=== PATIENT | male | born 1960 | race Caucasian/White ===

== ENCOUNTER → 2017-06-04 | Outpatient (CLI) | payer MEDICARE, OTHER | LOC: EDSEX 11:02 → RAD 11:02 | PROVIDERS: ATTEND Internal Medicine Cardiovascular Disease | DX: I63.9 Cerebral infarction, unspecified (principal); F43.10 Post-traumatic stress disorder, unspecified; Z72.0 Tobacco use | CPT/HCPCS: 93306 ==

== ENCOUNTER → 2017-06-10 | Outpatient (CLI) | payer MEDICARE, OTHER ==
[~2017-06-10] VITALS: Ht 182.9 cm; Wt 135.6 kg
[~2017-06-10] MED LIST: CATHETER FLUSH 10 ML SYR IV PRN; REGADENOSON 0.4 MG/5 ML SYR (LEXISCAN) IV ONE
--- NOTE | 2017-06-10 22:08 | STRESS TEST ---
DATE OF SERVICE: 06/10/2017 EXERCISE MYOVIEW STRESS TEST REPORT Baseline heart rate is 69, baseline blood pressure 190/110. Baseline EKG is sinus rhythm with no ischemic changes. SUMMARY: The patient was injected with 10.01 mCi of technetium-99 Myoview and the resting images were obtained. Then, the patient received 0.4 mg of Lexiscan followed by 29.2 mCi of technetium-99 Myoview. Throughout the test, there were no EKG changes. The resting and stress images were reviewed and compared in the short axis, horizontal long axis and vertical long axis views. Review of the images showed reversible ischemia involving the whole anterior wall, anterolateral wall and anterior septum. SSS is 11, SDS is 7, TID value 1.0. On the gated images, the left ventricle appeared to be prominent with end diastolic volume 169 mL and systolic volume 102 mL. Diffuse left ventricular hypokinesia, calculated ejection fraction 40%. CONCLUSION: 1. The patient tolerated the Lexiscan well. 2. Reversible ischemia involving the whole anterior wall, anterior septum and anterolateral wall. 3. Prominent left ventricle with diffuse left ventricular hypokinesia with calculated ejection fraction 40%. Job ID: [id number] DocumentID: [id number] Dictated Date: 06/10/2017 14:26:21 Creel Hand Date: 06/10/2017 17:46:06 Dictated By: MEÑO BOLTON MD
== END ==
LOC: EDSEX → CARD 07:28 → EDUNIT# 08:00
PROVIDERS: ATTEND Internal Medicine Cardiovascular Disease
DX: I25.10 Atherosclerotic heart disease of native coronary artery without angina pectoris (principal); I10 Essential (primary) hypertension; I63.9 Cerebral infarction, unspecified; E78.2 Mixed hyperlipidemia; E66.01 Morbid (severe) obesity due to excess calories; F43.10 Post-traumatic stress disorder, unspecified; Z72.0 Tobacco use
CPT/HCPCS: 78452; 93017

== ENCOUNTER 2017-06-29 06:44 | Day surgery (SDC) | payer MEDICARE, OTHER ==
[~2017-06-29] VITALS: Ht 182.9 cm; Wt 139.3 kg
[2017-06-29] VITALS (7 sets, daily range): BP systolic 118–196; BP diastolic 91–109
[2017-06-29] MEDS ORDERED: HEParin (CATH LAB) 2,000 ML IV ONE (06:56)
[2017-06-29] MEDS ORDERED: LIDOCAINE 1% INJ 50 ML (XYLOCAINE) VIAL ONE (06:56)
[2017-06-29] MEDS ORDERED: NS IV 1000 ML 1,000 ML IV SCH (07:00)
[2017-06-29 07:25] LABS: MEAN PLATELET VOLUME 8.4 FL (7.4-10.4); RED BLOOD COUNT 4.41 10^6/uL (4.35-5.85); WHITE BLOOD COUNT 7.3 10^3/uL (4.3-11.0)
[2017-06-29 07:26] LABS: BILIRUBIN,URINE NEGATIVE (NEGATIVE); KETONES,URINE NEGATIVE (NEGATIVE); LEUKOCYTE ESTERASE ,URINE NEGATIVE (NEGATIVE); NITRITE,URINE NEGATIVE (NEGATIVE); PH,URINE 6 (5-9); PROTEIN,URINE NEGATIVE (NEGATIVE); UROBILINOGEN,URINE NORMAL (NORMAL)
[2017-06-29 07:34] LABS: INR 0.9 (0.8-1.4); PROTHROMBIN TIME PATIENT 11.8 SEC (12.2-14.7)
[2017-06-29 07:35] LABS: SQUAMOUS EPITHELIAL CELL,UR RARE /HPF
[2017-06-29 07:46] LABS: ALANINE AMINOTRANSFERASE 23 U/L (0-55); ALBUMIN 4.4 GM/DL (3.2-4.5); ANION GAP 12 MMOL/L (5-14); ASPARTATE AMINO TRANSFERASE 25 U/L (5-34); BILIRUBIN,TOTAL 0.7 MG/DL (0.1-1.0); BLOOD UREA NITROGEN 14 MG/DL (7-18); BUN/CREATININE RATIO 16; CALCIUM 9.4 MG/DL (8.5-10.1); CARBON DIOXIDE 27 MMOL/L (21-32); CHLORIDE 99 MMOL/L (98-107); CHOLESTEROL 156 MG/DL (< 200); DIRECT LDL 72 MG/DL (1-129); GFR ESTIMATED > 60; GLUCOSE 190 MG/DL (70-105); POTASSIUM 3.7 MMOL/L (3.6-5.0); SODIUM 138 MMOL/L (135-145); TOTAL PROTEIN 7.4 GM/DL (6.4-8.2); TRIGLYCERIDES 255 MG/DL (<150); VLDL CHOLESTEROL 51 MG/DL (5-40)
--- NOTE | 2017-06-29 08:00 | Diagnostic Imaging Report ---
INDICATION: Abnormal stress, coronary disease, stroke, history of hypertension.. TECHNIQUE: Single view chest 7:23 a.m.. CORRELATION STUDY: None FINDINGS: Heart size is enlarged. Vasculature within normal limits. There are post sternotomy changes. Calcified granuloma left mid lung field. Lung jenkins are overall relatively clear. IMPRESSION: 1. Poststernotomy changes. Cardiac enlargement without failure. Dictated by: Dictated on workstation # [id number]
[2017-06-29] MEDS ORDERED: CYCL10TA9 PO (08:12)
[2017-06-29] MEDS ORDERED: ATOR80TA76 PO (08:12)
[2017-06-29] MEDS ORDERED: LISI40TA PO (08:12)
[2017-06-29] MEDS ORDERED: HALO0.5T PO (08:12)
[2017-06-29] MEDS ORDERED: ASPI-586 PO (08:12)
[2017-06-29] MEDS ORDERED: HYDR25TA4 PO (08:12)
[2017-06-29] MEDS ORDERED: CHOL20002 PO (08:12)
[2017-06-29] MEDS ORDERED: LAMO100T PO (08:12)
[2017-06-29] MEDS ORDERED: ALPR1TAB7 PO (08:12)
[2017-06-29] MEDS ORDERED: DEXT15CA28 PO (08:12)
[2017-06-29] MEDS ORDERED: DONE10TA41 PO (08:12)
[2017-06-29] MEDS ORDERED: ATEN25TA PO (08:12)
[2017-06-29] MEDS ORDERED: CYAN100088 PO (08:12)
[2017-06-29] MEDS ORDERED: PSYL0.525 PO (08:12)
[2017-06-29] MEDS ORDERED: ACET650S15 RC (08:12)
[2017-06-29] MEDS ORDERED: TAMS0.4C98 PO (08:12)
[2017-06-29] MEDS ORDERED: DULO30CA48 PO (08:12)
[2017-06-29] MEDS ORDERED: CLOP75TA28 PO (08:12)
[2017-06-29] MEDS ORDERED: HYDR-3820 PO (08:12)
[2017-06-29] MEDS ORDERED: METF1000 PO (08:12)
[2017-06-29] MEDS ORDERED: ESZO1TAB11 PO (08:12)
[2017-06-29] MEDS ORDERED: LORA2TAB PO (08:12)
[2017-06-29] MEDS ORDERED: NITR0.4T39 SL (08:12)
[2017-06-29] MEDS ORDERED: OMEP20TA7 PO (08:12)
[2017-06-29] MEDS ORDERED: VARE1TAB22 PO (08:12)
--- NOTE | 2017-06-29 08:13 | Cardiac Procedure Note-CS/ASA ---
Pre-Procedure Note Pre-Op Procedure Note H&P Reviewed The H&P was reviewed, patient examined and no changes noted. Date H&P Reviewed: Jun 29, 2017 Time H&P Reviewed: 08:12 Conscious Sedation Pre-Proced Time Reviewed: 08:12 ASA Class: 3 Airway Mallampati Classification: (curyung appropriate class) I. II. III, IV Lungs Heart ASA score ASA 1: a normal healthy patient ASA 2: a patient with a mild systemic disease (mid diabetes, controlled hypertension, obesity x ASA 3: a patient with a severe systemic disease that limits activity (angina , COPD, prior Myocardial infarction) ASA 4: a patient with an incapacitating disease that is a constant threat to life (CHF, renal failure) ASA 5: a moribund patient not expected to survive 24 hrs. (ruptured aneurysm) ASA 6: a declared brain patient whose organs are being harvested. For emergent operations, add the letter E after the classification Grade 3 Sedation Plan: Analgesia, Amnesia, Plan communicated to team members, Discussed options with patient/fam, Discussed risks with patient/fam Note The patient is an appropriate candidate to undergo the planned procedure, sedation, and anesthesia. The patient immediately re-assessed prior to indication. MEÑO BOLTON MD Jun 29, 2017 08:13
[2017-06-29] MEDS ORDERED: fentaNYL INJECTION 100 MCG/2 ML AMP ONE (08:17)
[2017-06-29] MEDS ORDERED: MIDAZOLAM 2 MG/2 ML (VERSED) VIAL ONE ×2 (08:18→08:32)
--- NOTE | 2017-06-29 08:27 | Consultation-Cardiology ---
HPI-Cardiology Cardiology Consultation Date of Consultation 06/29/17 Date of Admission Time Seen by Provider: 08:22 Indication: chest pain HPI 56 years old gentleman with history of hypertension, strong family history of heart disease. Was in his usual state of health until this morning when he started having chest pain, described it as dull achiness in the lower retrosternal area and upper epigastric area, not radiating, felt jittery and lightheaded, no syncope, no palpitation, no shortness of breath, lasted for about an hour, came into the emergency room and reported relief after receiving aspirin. Did not require nitroglycerin. Did not have any similar episodes recently but had a stress test done in 2013 and it was normal. He is currently feeling better, no active pain. EKG did not show any acute abnormality. Home Medications & Allergies Allergies: Coded Allergies: No Allergy Information Available (Unverified , 06/10/17) Home Medication List Reviewed: Yes EKB-Rolobl-Eqottd Hx Patient Social History Marital Status: Employed/Student: employed Smoking Status: Former Smoker Type Used: Cigarettes Recent Foreign Travel: No Immunizations Up To Date Date of Influenza Vaccine: Mar 24, 2017 Past Medical History hypertension Family Medical History Family Medical Hx Mother had rheumatic heart disease with mitral valve replacement Father had coronary artery disease, CABG Constitutional: see HPI, No chills, No diaphoresis, dizziness, No fever, No malaise, No weakness, No weight gain, No weight loss, No other EENTM: see HPI, no symptoms reported Respiratory: see HPI, No cough, No dyspnea on exertion, No hemoptysis, No orthopnea, No phlegm, No short of breath, No stridor, No wheezing, No other Cardiovascular: see HPI, chest pain, No edema, No Hx of Intervention, No palpitations, No syncope, No vascular heart diseas, No other Gastrointestinal: no symptoms reported, see HPI Genitourinary: see HPI Musculoskeletal: no symptoms reported, see HPI Skin: no symptoms reported, see HPI Psychiatric/Neurological: No Symptoms Reported, See HPI Reviewed Test Results Reviewed Test Results Lab Laboratory Tests Test 06/29/17 07:15 Range/Units White Blood Count 7.3 4.3-11.0 10^3/uL Red Blood Count 4.41 4.35-5.85 10^6/uL Hemoglobin 14.1 13.3-17.7 G/DL Hematocrit 40 40-54 % Mean Corpuscular Volume 90 80-99 FL Mean Corpuscular Hemoglobin 32 25-34 PG Mean Corpuscular Hemoglobin Concent 35 32-36 G/DL Red Cell Distribution Width 13.0 10.0-14.5 % Platelet Count 317 130-400 10^3/uL Mean Platelet Volume 8.4 7.4-10.4 FL Prothrombin Time 11.8 L 12.2-14.7 SEC INR Comment 0.9 0.8-1.4 Activated Partial Thromboplast Time 29 24-35 SEC Urine Color YELLOW Urine Clarity CLEAR Urine pH 6 5-9 Urine Specific [place] 1.015 L 1.016-1.022 Urine Protein NEGATIVE NEGATIVE Urine Glucose (UA) 2+ H NEGATIVE Urine Ketones NEGATIVE NEGATIVE Urine Nitrite NEGATIVE NEGATIVE Urine Bilirubin NEGATIVE NEGATIVE Urine Urobilinogen NORMAL NORMAL MG/DL Urine Leukocyte Esterase NEGATIVE NEGATIVE Urine RBC (Auto) NEGATIVE NEGATIVE Urine RBC NONE /HPF Urine WBC NONE /HPF Urine Squamous Epithelial Cells RARE /HPF Urine Crystals NONE /LPF Urine Bacteria NEGATIVE /HPF Urine Casts NONE /LPF Urine Mucus NEGATIVE /LPF Urine Culture Indicated NO Sodium Level 138 135-145 MMOL/L Potassium Level 3.7 3.6-5.0 MMOL/L Chloride Level 99 98-107 MMOL/L Carbon Dioxide Level 27 21-32 MMOL/L Anion Gap 12 5-14 MMOL/L Blood Urea Nitrogen 14 7-18 MG/DL Creatinine 0.90 0.60-1.30 MG/DL Estimat Glomerular Filtration Rate > 60 BUN/Creatinine Ratio 16 Glucose Level 190 H 70-105 MG/DL Calcium Level 9.4 8.5-10.1 MG/DL Total Bilirubin 0.7 0.1-1.0 MG/DL Aspartate Amino Transf (AST/SGOT) 25 5-34 U/L Alanine Aminotransferase (ALT/SGPT) 23 0-55 U/L Alkaline Phosphatase 95 40-136 U/L Total Protein 7.4 6.4-8.2 GM/DL Albumin 4.4 3.2-4.5 GM/DL Triglycerides Level 255 H <150 MG/DL Cholesterol Level 156 < 200 MG/DL LDL Cholesterol Direct 72 1-129 MG/DL VLDL Cholesterol 51 H 5-40 MG/DL HDL Cholesterol 50 40-60 MG/DL Physical Exam Vital Signs Vital Sign - Last 12Hours 06/29/17 07:26 Temp 98.5 Pulse 74 Resp 18 B/P (MAP) 196/109 (138) Pulse Ox 98 O2 Delivery Room Air Capillary Refill : General Appearance: No Apparent Distress, WD/WN Eyes: Bilateral Eye Normal Inspection, Bilateral Eye PERRL, Bilateral Eye EOMI HEENT: PERRL/EOMI, TMs Normal, Normal ENT Inspection, Pharynx Normal, Other ( hemangioma on the right side of the face, neck and upper chest) Neck: Full Range of Motion, Normal Inspection, Non Tender, Supple, Carotid Bruit Respiratory: Chest Non Tender, Lungs Clear, Normal Breath Sounds, No Accessory Muscle Use, No Respiratory Distress Cardiovascular: Regular Rate, Rhythm, No Edema, No Gallop, No JVD, No Murmur, Normal Peripheral Pulses Gastrointestinal: Normal Bowel Sounds, No Organomegaly, No Pulsatile Mass, Non Tender, Soft Back: Normal Inspection, No CVA Tenderness, No Vertebral Tenderness Extremity: Normal Capillary Refill, Normal Inspection, Normal Range of Motion, Non Tender, No Calf Tenderness, No Pedal Edema Neurologic/Psychiatric: Alert, Oriented x3, No Motor/Sensory Deficits, Normal Mood/Affect Skin: Normal Color, Warm/Dry Lymphatic: No Adenopathy A/P-Cardiology Admission Diagnosis Chest pain, non specific etiology Hypertension Hyperlipidemia Family history of Atherosclerosis Assessment/Plan Chest pain nonspecific etiology, atypical in presentation, first set of cardiac enzymes and EKG are normal, currently chest pain-free. Has multiple risk factors for coronary artery disease, planning to evaluate stress test and echocardiogram. Hypertension, maintained on Toprol-XL 50 mg daily. Continue to monitor blood pressure Dizziness and lightheadedness with chest pain, no full syncope was reported. Hyperlipidemia/hypertriglyceridemia, we discussed diet controlled, limiting carbohydrates intake, weight loss and monitoring his lipids BMI is 40, we discussed weight loss and exercise. Family history of heart disease MEÑO BOLTON MD Jun 29, 2017 08:27
[2017-06-29] MEDS ORDERED: ENOXAPARIN 100 MG/1 ML (LOVENOX) SYR ONE (08:57)
[2017-06-29] MEDS ORDERED: NITROGLYCERIN DRIP 25 MG/D5W 250 ML IV ONE (08:57)
[2017-06-29] MEDS ORDERED: ENALAPRILAT 2.5 MG/2 ML (VASOTEC) VIAL IV ONE (09:20)
[2017-06-29] MEDS ORDERED: meTOprolol 5 MG/5 ML (LOPRESSOR) VIAL ONE (09:20)
[2017-06-29] MEDS: NS IV 1000 ML 1,000 ML IV SCH ×2 (09:29→20:28)
[2017-06-29] MEDS ORDERED: PATIENT MAY USE OWN MEDS, ALL PO SCH (09:30)
--- NOTE | 2017-06-29 09:42 | Cardiac Cath Report ---
Cardiac Cath Report Physician (s)/Boiler Reliner (s) Physician MEÑO BOLTON MD Pre-Procedure Diagnosis Pre-Procedure Diagnosis: Coronary artery disease Post-Procedure Note Procedure Start Date: Jun 29, 2017 Name of Procedure: Left heart catheterization Vein graft angiogram, DAVID angiogram Abdominal aortogram Selective left renal artery angiogram Balloon angioplasty to the kake right coronary artery Findings/Procedure Note PROCEDURE NOTE: After explaining the procedure to the patient, all pros and cons were explained, all questions were answered. The patient signed the consent and then she was placed on the cardiac catheterization laboratory. The patient was placed on the cardiac catheterization laboratory. Groin was prepped SL fashion local anesthesia was used. Sheath placed in the artery. Serjio right and left catheter were used to access the coronary system. Vein Graft evaluated. DA SILVA evaluated. Pigtail was used to access the left ventricular cavity. Pressure was measured, no left ventricular gram was done Abdominal aortogram was done with the pigtail catheter Selective left renal angiogram was done with the Serjio right catheter, I was unable to intubate the right renal artery Patient had severe stenosis in stent in the right coronary artery, he was given 100 mg of IV Lovenox, if our guide advanced to the right coronary artery, BMW wire was advanced and placed in the distal right, 3.020 mm Emerge balloon was used, multiple inflation up to 3.23 mm, excellent results At the end of the procedure the sheath was removed. Closure device was used FINDINGS: Hemodynamics LV 172/16, end-diastolic pressure of 16 Aorta 172/92 mean of 124 ANATOMY: Left Main is patent, LAD and circumflex are occluded Left Anterior Descending is occluded, D ASILVA to LAD is patent the kake LAD is fairly small with diffuse disease Left Circumflex is occluded with patent vein graft to the obtuse marginal branch with excellent flow Right Coronory Artery has stent from the proximal to distal portion, known to have Alpine stents, severe in stent restenosis, successful balloon angioplasty using 3.020 mm Emerge balloon expanded to 3.23 mm, reduction of a 90 percent stenosis into 10 percent residual stenosis with good results DA SILVA is patent, the kake LAD is small artery with moderate diffuse disease Vein Graft 2 vein graft, the lower vein graft is known to be occluded to the right coronary artery, the upper and vein graft is a vein graft to the obtuse marginal branch that is patent with excellent flow LV Gram was not done, pressure was measured Abdominal aortogram done in the AP position showing mild adverse carotid plaque no dissection or aneurysm, origin of the renal arteries appeared normal, mild stenosis at the right renal artery, the superior and inferior mesenteric arteries are normal Selective right renal angiogram was done with the Serjio right catheter showing no obstructive disease CONCLUSION: 1. Severe in-stent restenosis in the right coronary artery at multiple segments ranging between 70-90 percent, successful balloon angioplasty using 3.0 x 20 mm Emerge balloon expanded to 3.23 mm with excellent results, mild residual stenosis about 10 percent at most 2. Patent DA SILVA to LAD with moderate disease in the kake LAD small artery. Medical therapy is recommended 3. Patent vein graft to the obtuse marginal branch 4. Normal abdominal aorta 5. Mild proximal right renal artery stenosis, nonobstructive disease 6. Normal left ventricular end-diastolic pressure DISCUSSION AND RECOMMENDATION: I will continue maximizing medical therapy at this time Anesthesia Type: Conscious Sedation Estimated blood loss (mL): 10 ml Contrast Amount: 150 ml Total Radiation Dose: 1778 mGy Post-Procedure Diagnosis Post-operative diagnosis: Coronary artery disease Hypertension Hyperlipidemia Diabetes mellitus MEÑO BOLTON MD Jun 29, 2017 09:42
[2017-06-29] MEDS ORDERED: NITROGLYCERIN 0.4 MG SL TABS BTL 25'S SL PRN (09:45)
[2017-06-29] MEDS ORDERED: HALO5TAB PO ×2 (13:04)
[2017-06-29] MEDS ORDERED: CYCL5TAB PO (13:04)
[2017-06-29] MEDS ORDERED: PSYL575P4 PO (13:04)
[2017-06-29] MEDS ORDERED: ACET-2422 PO (13:04)
[2017-06-29] MEDS ORDERED: ESZO3TAB38 PO (13:04)
[2017-06-29] MEDS ORDERED: GUAI5SYR PO (13:04)
[2017-06-29] MEDS ORDERED: CHOL10003 PO (13:04)
[2017-06-29] MEDS ORDERED: AMLO2.5T PO (13:04)
[2017-06-29] MEDS ORDERED: ACETAMINOPHEN 325 MG TABLET/CAPLET (TYLENOL) PO PRN (13:45)
[2017-06-29] MEDS ORDERED: ALPRAZolam 1 MG (XANAX) TAB PO PRN (13:48)
[2017-06-29] MEDS ORDERED: HYDROcodone/APAP 10 MG/325 MG (LORTAB) TAB PO PRN (13:57)
[2017-06-29] MEDS ORDERED: CYCLOBENZAPRINE 5 MG TAB PO PRN (15:15)
[2017-06-29] MEDS ORDERED: TAMSULOSIN 0.4 MG CAPSULE PO SCH (18:00)
[2017-06-29] MEDS ORDERED: ALFUZOSIN HCL 10 MG TAB (UROXATRAL) PO SCH (18:00)
[2017-06-29] MEDS: LISINOPRIL 40 MG TAB PO SCH (18:25)
[2017-06-29] MEDS ORDERED: DONEPEZIL 10 MG (ARICEPT) TAB PO SCH (21:00)
[2017-06-29] MEDS ORDERED: HALOPERIDOL 5 MG (HALDOL) TAB PO SCH (21:00)
[2017-06-29] MEDS ORDERED: ESZOPICLONE 3 MG PO SCH (21:00)
[2017-06-29] MEDS ORDERED: ZOLPIDEM 5 MG (AMBIEN) TAB PO SCH (21:00)
[2017-06-29] MEDS ORDERED: ATORVASTATIN 80 MG (LIPITOR) TABLET PO SCH (21:00)
[2017-06-30 00:20] VITALS: BP 159/82
[2017-06-30 04:40] VITALS: BP 142/82
[2017-06-30 04:53] LABS: MEAN PLATELET VOLUME 8.4 FL (7.4-10.4); RED BLOOD COUNT 4.42 10^6/uL (4.35-5.85); RED CELL DISTRIBUTION WIDTH 12.9 % (10.0-14.5); WHITE BLOOD COUNT 6.6 10^3/uL (4.3-11.0)
[2017-06-30 05:10] LABS: ANION GAP 14 MMOL/L (5-14); BLOOD UREA NITROGEN 12 MG/DL (7-18); BUN/CREATININE RATIO 15; CALCIUM 9.2 MG/DL (8.5-10.1); CARBON DIOXIDE 24 MMOL/L (21-32); CHLORIDE 98 MMOL/L (98-107); CREATININE SERUM 0.78 MG/DL (0.60-1.30); GFR ESTIMATED > 60; GLUCOSE 127 MG/DL (70-105); POTASSIUM 3.5 MMOL/L (3.6-5.0); SODIUM 136 MMOL/L (135-145)
[2017-06-30] MEDS: NS IV 1000 ML 1,000 ML IV SCH (05:29)
--- NOTE | 2017-06-30 07:24 | Cardiology Progress Note ---
Subjective Date Seen by Provider: Jun 30, 2017 Time Seen by Provider: 07:22 Subjective/Events-last exam Patient is feeling well. Denied any chest pain, did not sleep well, groin is healing well. Review of Systems General: No Chills, No Night Sweats, No Fatigue, No Malaise, No Appetite, No Other HEENT: No Head Aches, No Visual Changes, No Eye Pain, No Ear Pain, No Dysphasia , No Sinus Congestion, No Post Nasal Drip, No Sore Throat, No Other Pulmonary: No Dyspnea, No Cough, No Pleuritic Chest Pain, No Other Cardiovascular: No: Chest Pain, Palpitations, Orthopnea, Paroxysmal Noc. Dyspnea, Edema, Lt Headedness, Other Objective-Cardiology Exam Last Set of Vital Signs Vital Signs 06/30/17 04:40 Temp 98.4 Pulse 75 Resp 16 B/P (MAP) 142/82 (102) Pulse Ox 96 O2 Delivery Room Air Capillary Refill : Less Than 3 Seconds I&O Intake and Output 06/30/17 00:00 Intake Total 3400 ml Output Total 2000 ml Balance 1400 ml Intake Oral 2400 ml IV Total 1000 ml Output Urine Total 2000 ml General: Alert, Oriented X3, Cooperative HEENT: Atraumatic, PERRLA Neck: Supple, No JVD, No Thyromegaly Lungs: Clear to Auscultation, Normal Air Movement Heart: Regular Rate, Normal S1, Normal S2, No Murmurs Abdomen: Normal Bowel Sounds, Soft, No Tenderness, No Hepatosplenomegaly, No Masses Extremities: No Clubbing, No Cyanosis, No Edema, Normal Pulses, No Tenderness/ Swelling Skin: No Rashes, No Breakdown, No Significant Lesion Neuro: Normal Gait, Normal Speech, Strength at 5/5 X4 Ext, Normal Tone, Sensation Intact Psych/Mental Status: Mental Status NL, Mood NL Results Lab Laboratory Tests 06/30/17 04:40 A/P-Cardiology Admission Diagnosis Coronary artery disease Hypertension Hyperlipidemia Hypokalemia Diabetes mellitus Assessment/Plan Coronary artery disease, status post cardiac catheterization with balloon angioplasty for in-stent restenosis in the right coronary artery, groin is healed well. Hypokalemia, replace Hypertension, controlled, monitor blood pressure Hyperlipidemia, monitor lipids Diabetes mellitus followed and managed by primary care physician Patient will be discharged today MEÑO BOLTON MD Jun 30, 2017 7:24 am
--- NOTE | 2017-06-30 07:26 | Discharge Inst-Post CATH ---
Discharge Inst-CATH Post Cardiac Cath D/C Inst Follow Up/Plan Hold metformin for [address] Guadalupe's office in 2-4 weeks CARDIAC CATH DISCHARGE INSTRUCTIONS *Hold Metformin for 48 hours post heart cath. ACTIVITY * Go Home directly and rest. * Limit activity of the leg (or wrist if it was used) for 7 days including aerobics, swimming, jogging, bicycling, etc. * Restrict stair-climbing for 7 days if possible, if not, climb up with your non -cath leg, then bring together on the same step. * Avoid lifting, pushing, pulling or excessive movement of the affected extremity for 7 days. * Customary sexual activity may be resumed after 2 days-use caution not to use a position that strains or causes pain to the affected extremity. * No driving for 24 hours. * NO SMOKING. * Avoid straining for bowel movements for 7 days. * Gentle walking on level ground is allowed. * Returning to work will depend on the type of procedure and the results. Your doctor will discuss this with you. CALL YOUR DOCTOR FOR ANY OF THE FOLLOWING: *If bleeding from the puncture site occurs- Apply gentle pressure to site with clean cloth and call your doctor or EMS. * If a knot or lump forms under the skin, increases in size, or causes pain. * If bruising appears to be worsening or moving further down your leg instead of disappearing. * Temperature above 101 F. CARE OF YOUR GROIN INCISION; * Bruising or purple discoloration of the skin near the puncture site is common. * You may shower only, no bathtub bathing for 5 days. Be careful to avoid slipping as your leg may feel stiff. * If a closure device was used on your femoral artery, please see the attached guide regarding care of the device and your leg. * REMOVE the dressing from your groin the next day after your procedure in the shower. CARE OF YOUR WRIST INCISION; * Bruising or purple discoloration of the skin near the puncture site is common. * You may shower. * DO NOT submerge wrist. * Remove dressing in 24 hours. MEÑO GUADALUPE MD Jun 30, 2017 7:26 am
[2017-06-30] MEDS ORDERED: KCL 20 MEQ TAB (K-DUR) PO NR (07:30)
[2017-06-30 08:00] VITALS: BP 156/90
[2017-06-30] MEDS ORDERED: HYDROCHLOROTHIAZIDE 25 MG (HCTZ) TAB PO SCH (09:00)
[2017-06-30] MEDS ORDERED: NON-FORMULARY MEDICATION 1 EA EA (Varenicline Tartrate (Chantix) 1 MG) PO SCH (09:00)
[2017-06-30] MEDS ORDERED: PSYLLIUM POWDER (METAMUCIL) 5.8 GM PACKET PO SCH (09:00)
[2017-06-30] MEDS ORDERED: DULoxetine 30 MG (CYMBALTA) CAP PO SCH (09:00)
[2017-06-30] MEDS ORDERED: ATENOLOL 25 MG (TENORMIN) TAB PO SCH (09:00)
[2017-06-30] MEDS ORDERED: lisINopril 20 MG (ZESTRIL) TAB PO SCH (09:00)
[2017-06-30] MEDS ORDERED: DULOXETINE 60 MG CAPSULE PO SCH (09:00)
[2017-06-30] MEDS ORDERED: VITAMIN B-12 1000 MCG TAB PO SCH (09:00)
[2017-06-30] MEDS ORDERED: ASPIRIN E.C. 81 MG (ECOTRIN) TAB PO SCH (09:00)
[2017-06-30] MEDS: LISINOPRIL 40 MG TAB PO SCH (10:58)
[2017-06-30 11:07] VITALS: BP 156/90
[2017-06-30] MEDS ORDERED: PANTOPRAZOLE 20 MG TABLET (PROTONIX) PO SCH (12:00)
[2017-06-30] MEDS ORDERED: amLODIPine 2.5MG (NORVASC) TAB PO SCH (12:00)
[2017-06-30] MEDS ORDERED: CLOPIDOGREL 75 MG (PLAVIX) TABLET PO SCH (21:00)
== END 2017-06-30 11:07 | disposition home or self-care (01) ==
LOC: CATH 06:44 → ICU 09:50 → CATH 06-30 11:07
PROVIDERS: ATTEND Internal Medicine Cardiovascular Disease
DX: I25.10 Atherosclerotic heart disease of native coronary artery without angina pectoris (principal); I10 Essential (primary) hypertension; E78.5 Hyperlipidemia, unspecified; E87.6 Hypokalemia; E11.9 Type 2 diabetes mellitus without complications; Z11.2 Encounter for screening for other bacterial diseases
CPT/HCPCS: 36251; 36415; 71010; 75625; 80048; 80053; 80061; 81000; 85027; 85610; 85730; 87081; 92920; 93005; 93459